=== PATIENT | male | born 1950 | race Caucasian/White ===

== ENCOUNTER → 2023-10-04 | Outpatient (CLI) | payer OTHER ==
--- NOTE | 2023-10-05 10:43 | NM ---
EXAMINATION TYPE: NM DatScan Brain SPECT DATE OF EXAM: 10/04/2023 COMPARISON: NONE CLINICAL INDICATION: Male, 73 years old with history of G25.0; TECHNIQUE: 10 drops of Lugol's solution was administered 1 hour prior to injection as a thyroid bloc moncho agent. After the administration of 4.76 mCi I-123 Ioflupane DaTscan. Images obtained 3 hours p ost injection. SPECT images of the brain were acquired with axial and coronal reconstructions. FINDINGS: Symmetric, normal bilateral corpus striatal uptake. No significant increase in background activity. IMPRESSION: This normal appearance is against a diagnosis of Parkinson's disease or a Parkinsonian syndrome. It c an be seen in normal individuals and also those with essential tremor.
== END | disposition home or self-care (01) ==
LOC: RADNMMAIN 09:40
PROVIDERS: ATTEND Psychiatry & Neurology Neurology
DX: G25.0 Essential tremor (principal)
CPT/HCPCS: 78803; A9584